=== PATIENT | female | born 1975 | race African-American/Black ===

== ENCOUNTER 2019-08-14 23:07 | Inpatient (IN) | payer OTHER ==
[~2019-08-14] VITALS: Ht 160 cm; Wt 59.0 kg
[2019-08-14] MEDS ORDERED: PERCOCET 5-3251 EACH ORAL (23:27)
[2019-08-14] MEDS ORDERED: TRAMADOL HCL50 MG ORAL (23:27)
[2019-08-14] MEDS ORDERED: AUGMENTIN 875-1 EAC1 ORAL (23:27)
--- NOTE | 2019-08-14 23:28 | Emergency Room Report ---
History of Present Illness General Chief Complaint: Abdominal Pain Source: Patient Present Illness HPI Patient presents with complaints of diffuse body pain and diffuse abdominal pain She had uterine fibroids embolectomy this morning and as the pain has now persisted and worsened throughout the day she was concerned and came to the ER denies any fever she does feel nauseous Denies any chest pain or shortness of breath denies any diarrhea Denies any dysuria or frequency pain is also increased in the Bilateral suprapubic region Complains of cramping sensation Allergies: Coded Allergies: No Known Allergies (Unverified , 08/14/19) Patient History Past Medical History: see triage record Reviewed Nursing Documentation: PMH: Agreed; PSxH: Agreed Review of Systems All Other Systems: negative except mentioned in HPI Physical Exam 99% on room air which is normal Sp02 EP Interpretation: reviewed, normal General Appearance: other - Appears uncomfortable Head: normocephalic, atraumatic Eyes: bilateral eye PERRL, bilateral eye EOMI ENT: hearing grossly normal, EOM grossly intact Neck: supple Respiratory: lungs clear, no respiratory distress, no retraction, no accessory muscle use Cardiovascular #1: regular rate, rhythm Gastrointestinal: other - Uncomfortable on palpation diffusely some decreased bowel sounds are noted Genitourinary: no CVA tenderness Musculoskeletal: normal inspection Neurologic: alert, oriented x3 Psychiatric: normal inspection Skin: no rash Lymphatic: no adenopathy Medical Decision Making Diagnostic Impression: Primary Impression: Postoperative abdominal pain Additional Impression: Intractable abdominal pain ER Course With the patient's history and examination, multiple differentials considered, including but not limited to , ectopic , ovarian torsion, gastritis, cholecystitis, pancreatitis, appendicitis Given the patient's recent embolectomy consideration for secondary pathology such as internal bleeding, bowel obstruction also entertained CT imaging does not show obvious evidence of obstruction There are multiple findings which will be reviewed Patient's blood work is at baseline levels she is doing better with pain control and admitted for further review and care Labs Test 08/15/19 00:20 White Blood Count 9.8 K/UL (4.8-10.8) Red Blood Count 4.24 M/UL (4.20-5.40) Hemoglobin 10.4 G/DL (12.0-16.0) Hematocrit 30.9 % (37.0-47.0) Mean Corpuscular Volume 73 FL (80-99) Mean Corpuscular Hemoglobin 24.5 PG (27.0-31.0) Mean Corpuscular Hemoglobin Concent 33.6 G/DL (32.0-36.0) Red Cell Distribution Width 20.8 % (11.6-14.8) Platelet Count 356 K/UL (150-450) Mean Platelet Volume 7.0 FL (6.5-10.1) Neutrophils (%) (Auto) 82.4 % (45.0-75.0) Lymphocytes (%) (Auto) 16.6 % (20.0-45.0) Monocytes (%) (Auto) 0.8 % (1.0-10.0) Eosinophils (%) (Auto) 0.0 % (0.0-3.0) Basophils (%) (Auto) 0.3 % (0.0-2.0) Urine Color Pale yellow Urine Appearance Clear Urine pH 8 (4.5-8.0) Urine Specific [place] 1.010 (1.005-1.035) Urine Protein Negative (NEGATIVE) Urine Glucose (UA) Negative (NEGATIVE) Urine Ketones Negative (NEGATIVE) Urine Blood 1+ (NEGATIVE) Urine Nitrite Negative (NEGATIVE) Urine Bilirubin Negative (NEGATIVE) Urine Urobilinogen Normal MG/DL (0.0-1.0) Urine Leukocyte Esterase Negative (NEGATIVE) Urine RBC 0-2 /HPF (0 - 2) Urine WBC 0 /HPF (0 - 2) Urine Squamous Epithelial Cells Few /LPF (NONE/OCC) Urine Bacteria None /HPF (NONE) Urine HCG, Qualitative Negative (NEGATIVE) Sodium Level 132 MMOL/L (136-145) Potassium Level 3.7 MMOL/L (3.5-5.1) Chloride Level 98 MMOL/L (98-107) Carbon Dioxide Level 27 MMOL/L (21-32) Anion Gap 7 mmol/L (5-15) Blood Urea Nitrogen 9 mg/dL (7-18) Creatinine 1.0 MG/DL (0.55-1.30) Estimat Glomerular Filtration Rate > 60 mL/min (>60) Glucose Level 138 MG/DL (74-106) Calcium Level 8.5 MG/DL (8.5-10.1) Total Bilirubin 0.2 MG/DL (0.2-1.0) Aspartate Amino Transf (AST/SGOT) 24 U/L (15-37) Alanine Aminotransferase (ALT/SGPT) 33 U/L (12-78) Alkaline Phosphatase 60 U/L (46-116) Total Protein 8.3 G/DL (6.4-8.2) Albumin 3.4 G/DL (3.4-5.0) Globulin 4.9 g/dL Albumin/Globulin Ratio 0.7 (1.0-2.7) Lipase 70 U/L (73-393) CT/MRI/US Diagnostic Results CT/MRI/US Diagnostic Results : Impression CT abdomen pelvisIMPRESSION: 1. Patient has contrast from a prior injection seen within the gallbladder, ureters, bladder, and the uterus. 2. Severely distended stomach filled with fluid, nonspecific. No bowel obstruction or bowel thickening. Copious amounts of stool throughout the colon with mild stool impaction in the distal colon and rectum. 3. Severely enlarged uterus with multiple enhancing lesions, presumed to be fibroids. Consider outpatient MRI of the pelvis for better characterization given the large size of the uterus (12 cm) and number of fibroids (more than 10). Status: improved Disposition: ADMITTED INPATIENT Condition: German DeniselvislitDakota DO August 14, 2019 23:28
[2019-08-14] MEDS ORDERED: Morphine Sulfate 4mg/ml Inj (IV USE ONLY) IVP ONE (23:30)
[2019-08-14] MEDS ORDERED: DiphenhydrAMINE 50mg/ml Inj IVP ONE (23:30)
[2019-08-14 23:32] VITALS: BP 127/77
--- NOTE | 2019-08-14 23:32 | NUR ---
ED Nurse Note: Pt brought into ED via wheelchair CO 10/10 abdominal pain that radiates to legs. Pt states that she previously had surgery earlier this afternoon. Pt states that she has taken percocet 5mg at 1800 and 2100 and pain is unrelieved. VSS no ss of distress noted. Pt denies SOB. Pt aao x 4. Awaiting ERMD at bedside
--- NOTE | 2019-08-14 23:39 | NUR ---
ED Nurse Note: PT REFUSED BLOOD WORK
--- NOTE | 2019-08-14 23:45 | NUR ---
ED Nurse Note: ERMD at bedside
--- NOTE | 2019-08-15 | NUR ---
ED Nurse Note: ERMD at bedside; pt consented to blood work.
--- NOTE | 2019-08-15 00:09 | NUR ---
ED Nurse Note: All medications administered, pt tolerated well no ss of distress noted.
--- NOTE | 2019-08-15 00:10 | NUR ---
ED Nurse Note: Blood work and UA sent to lab
--- NOTE | 2019-08-15 00:12 | NUR ---
ED Nurse Note: PT TAKEN TO CT IN STABLE CONDITION, VSS NO SS OF DISTRESS NOTED
[2019-08-15] MEDS ORDERED: Potassium Chloride 20 MEQ in Dextrose 5%/Lactated Ringer's 1,000 ML IV SCH (00:15)
[2019-08-15 00:25] LABS: APPEARANCE,URINE CLEAR; BASOPHILS % (AUTO) 0.3 % (0.0-2.0); BILIRUBIN, URINE NEGATIVE (NEGATIVE); COLOR,URINE PALE YELLOW; GLUCOSE, URINE (UA) NEGATIVE (NEGATIVE); HEMATOCRIT 30.9 % (37.0-47.0); HEMOGLOBIN 10.4 G/DL (12.0-16.0); KETONES,URINE NEGATIVE (NEGATIVE); LEUKOCYTE ESTERASE ,URINE NEGATIVE (NEGATIVE); LYMPHOCYTES % (AUTO) 16.6 % (20.0-45.0); MEAN CORPUSCULAR VOLUME 73 FL (80-99); MONOCYTES % (AUTO) 0.8 % (1.0-10.0); NEUTROPHILS % (AUTO) 82.4 % (45.0-75.0); NITRITE,URINE NEGATIVE (NEGATIVE); PH,URINE 8 (4.5-8.0); PLATELET COUNT 356 K/UL (150-450); PROTEIN,URINE NEGATIVE (NEGATIVE); RED BLOOD COUNT 4.24 M/UL (4.20-5.40); RED CELL DISTRIBUTION WIDTH 20.8 % (11.6-14.8); UROBILINOGEN,URINE NORMAL MG/DL (0.0-1.0); WHITE BLOOD COUNT 9.8 K/UL (4.8-10.8)
[2019-08-15 00:35] LABS: ANION GAP 7 mmol/L (5-15); BLOOD UREA NITROGEN 9 mg/dL (7-18); CALCIUM 8.5 MG/DL (8.5-10.1); CARBON DIOXIDE 27 MMOL/L (21-32); CHLORIDE 98 MMOL/L (98-107); POTASSIUM 3.7 MMOL/L (3.5-5.1); SODIUM 132 MMOL/L (136-145)
[2019-08-15 00:39] LABS: ALANINE AMINOTRANSFERASE 33 U/L (12-78); ALBUMIN 3.4 G/DL (3.4-5.0); ALBUMIN/GLOBULIN RATIO 0.7 (1.0-2.7); ALKALINE PHOSPHATASE 60 U/L (46-116); ASPARTATE AMINO TRANSFERASE 24 U/L (15-37); BILIRUBIN,TOTAL 0.2 MG/DL (0.2-1.0)
[2019-08-15] MEDS ORDERED: Morphine Sulfate 4mg/ml Inj (IV USE ONLY) IVP ONE (01:00)
--- NOTE | 2019-08-15 01:07 | NUR ---
ED Nurse Note: Report given to LIONEL Wills on MS unit.
[2019-08-15 01:12] VITALS: BP 118/73
--- NOTE | 2019-08-15 01:13 | Diagnostic Imaging Report ---
EXAM: CT Abdomen and Pelvis Without Intravenous Contrast CLINICAL HISTORY: ABD PAIN TECHNIQUE: Axial computed tomography images of the abdomen and pelvis without intravenous contrast. CTDI is 4 mGy and DLP is 218 mGy-cm. One or more of the following dose reduction techniques were used: automated exposure control, adjustment of the mA and/or kV according to patient size, use of iterative reconstruction technique. COMPARISON: No relevant prior studies available. FINDINGS: Lung bases: No mass. No consolidation. ABDOMEN: Liver: Unremarkable. Gallbladder and bile ducts: Filled with contrast. Pancreas: No ductal dilation. Spleen: Unremarkable. Adrenals: Unremarkable. Kidneys and ureters: No obstructing stones. No hydronephrosis. Stomach and bowel: No bowel obstruction. No bowel wall thickening. Severely distended stomach with fluid, nonspecific. Copious amounts of stool throughout the colon with mild stool impaction in the distal colon and rectum. PELVIS: Appendix: No evidence of appendicitis. Bladder: No stones. Mildly thickened underdistended bladder. Reproductive: Severely enlarged multinodular uterus. ABDOMEN and PELVIS: Intraperitoneal space: Unremarkable. Bones/joints: No acute fractures. Soft tissues: Unremarkable. Vasculature: No abdominal aortic aneurysm. Lymph nodes: No enlarged lymph nodes. IMPRESSION: 1. Patient has contrast from a prior injection seen within the gallbladder, ureters, bladder, and the uterus. 2. Severely distended stomach filled with fluid, nonspecific. No bowel obstruction or bowel thickening. Copious amounts of stool throughout the colon with mild stool impaction in the distal colon and rectum. 3. Severely enlarged uterus with multiple enhancing lesions, presumed to be fibroids. Consider outpatient MRI of the pelvis for better characterization given the large size of the uterus (12 cm) and number of fibroids (more than 10).
--- NOTE | 2019-08-15 03:00 | NUR ---
NURSE NOTES: Patient in bed, awake, alert and verbally responsive. Able to make needs known. Respiration is even and unlabored. Complained of abdominal pain 7/10, was given PRn pain medication in the emergency room prior. Iv site noted. Will start Iv antibiotic, Iv fluid is unavailable at the moment. Charge nurse made aware. Patients belongings at bedside. Bed in low and locked position. Provided safe environment. Call light is at bedside. Will continue plan of care.
[2019-08-15] MEDS: ceFAZolin sod 1 GM in D5W 55 ML IVPB SCH ×3 (03:02→18:19)
[2019-08-15 04:00] VITALS: BP 104/66
[2019-08-15] MEDS: Potassium Chloride 20 MEQ in Dextrose 5%/Lactated Ringer's 1,000 ML IV SCH ×3 (07:00→21:13)
--- NOTE | 2019-08-15 07:15 | NUR ---
NURSE NOTES: Received patient in bed. Awake, A/O x4. On room air. Patient denies pain at this time. IV in the Left AC, site intact. Call light within reach.
--- NOTE | 2019-08-15 07:25 | NUR ---
HAND-OFF: Report given to LIONEL Mendoza.
--- NOTE | 2019-08-15 07:30 | NUR ---
NURSES NOTE: Pt in bed, A/OX4, denies pain currently. Pt states she would like to ambulate the hallways and ambulation is encouraged. Gait is strong. Dressing, R lower groin, dry and intact. IV L AC intact, infusing IVF without incident. All due meds will be given. Bed at lowest level, call light within reach. Patient will continue to be monitored.
[2019-08-15 07:34] LABS: BASOPHILS % (AUTO) 0.6 % (0.0-2.0); HEMATOCRIT 30.8 % (37.0-47.0); HEMOGLOBIN 9.8 G/DL (12.0-16.0); LYMPHOCYTES % (AUTO) 18.8 % (20.0-45.0); MEAN CORPUSCULAR VOLUME 74 FL (80-99); MONOCYTES % (AUTO) 2.3 % (1.0-10.0); NEUTROPHILS % (AUTO) 78.3 % (45.0-75.0); PLATELET COUNT 331 K/UL (150-450); RED BLOOD COUNT 4.15 M/UL (4.20-5.40); RED CELL DISTRIBUTION WIDTH 21.8 % (11.6-14.8); WHITE BLOOD COUNT 7.1 K/UL (4.8-10.8)
[2019-08-15 07:35] LABS: ALANINE AMINOTRANSFERASE 29 U/L (12-78); ALBUMIN/GLOBULIN RATIO 0.7 (1.0-2.7); ALKALINE PHOSPHATASE 51 U/L (46-116); ANION GAP 10 mmol/L (5-15); ASPARTATE AMINO TRANSFERASE 23 U/L (15-37); BILIRUBIN,TOTAL 0.3 MG/DL (0.2-1.0); BLOOD UREA NITROGEN 9 mg/dL (7-18); CALCIUM 8.2 MG/DL (8.5-10.1); CARBON DIOXIDE 24 MMOL/L (21-32); CHLORIDE 102 MMOL/L (98-107); CREATININE 0.9 MG/DL (0.55-1.30); POTASSIUM 4.2 MMOL/L (3.5-5.1); SODIUM 136 MMOL/L (136-145)
[2019-08-15 08:00] VITALS: BP 102/60
--- NOTE | 2019-08-15 09:00 | NUR ---
NURSE NOTES: Patient refused benadryl PO 50 mg. Patient states she does not want to take a lot of medications and states she does not seem it is necessary. Patient re-educated on use, risks, and benefits. No swelling on face noted, patient states she can breath without SOB and can swallow liquids fine.
[2019-08-15] MEDS ORDERED: Docusate 100mg cap ORAL SCH (10:15)
--- NOTE | 2019-08-15 10:15 | History and Physical ---
Latonia Jordan TUNNEL ELASTIC OPERATOR ZIGZAG 08/15/19 1015: History of Present Illness General Date patient seen: August 15, 2019 Time patient seen: 09:00 Reason for Hospitalization: Abdominal Pain Present Illness HPI 43 years old female with no significant past medical history , except uterine fibroids , undergone uterine artery embolization on 08/13. She presented with intermittent diffuse abdominal pain. Pain rated as 6-7 out of 10 in severity, nonradiating. She felt nauseous. She denied fever and chills. She denied dysuria or flank pain. She denied vaginal bleeding or spotting. No BM yet. Upon evaluation patient was afebrile. Laboratory work-up revealed no leukocytosis , hemoglobin 10.4, hematocrit 30.9 ,platelet count 356. Chemistry showed sodium 132, stable other electrolytes, glucose 138. Stable LFT . Urinalysis revealed no evidence of UTI. Urine test was negative. CT scan of the abdomen and pelvis revealed -severely distended stomach filled with fluid, nonspecific. No bowel obstruction or bowel thickening. Copious amounts of stool throughout the colon with mild stool impaction in the distal colon and rectum. -severely enlarged uterus with multiple enhancing lesions, presumed to be fibroids. In emergency department patient started on the IV fluids, received analgesic and antiemetic and admitted for further management. Allergies: Coded Allergies: No Known Allergies (Unverified , 08/14/19) COVID-19 Screening Contact w/high risk pt: No Recent Travel to affected area: No Experienced COVID-19 symptoms?: No Medication History Scheduled Amoxicillin/Potassium Clav 875-125* (Augmentin 875-125 Tablet*), 1 TAB ORAL TWICE A DAY, (Reported) Scheduled PRN Oxycodone/Acetaminophen 5-325* (Percocet 5-325 Mg Tablet*), 1 TAB ORAL Q4H PRN for For Pain, (Reported) Tramadol Hcl* (Ultram*), 50 MG ORAL Q6H PRN for For Pain, (Reported) Patient History Healthcare decision maker Resuscitation status Full Code Advanced Directive on File Past Medical/Surgical History Past Medical/Surgical History: (1) Status post embolization of uterine artery (2) Uterine fibroid Review of Systems Constitutional: Reports: no symptoms Eye: Reports: no symptoms ENT: Reports: no symptoms Respiratory: Reports: no symptoms Cardiovascular: Reports: no symptoms Gastrointestinal: Reports: abdominal pain Genitourinary: Reports: see HPI Musculoskeletal: Reports: no symptoms Skin: Reports: no symptoms Psychiatric: Reports: no symptoms Neurological: Reports: no symptoms Endocrine: Reports: no symptoms Hematologic/Lymphatic: Reports: no symptoms Physical Exam General Appearance: no apparent distress, other - middle age AA female in NAD Lines, tubes and drains: peripheral HEENT: normocephalic, mucous membranes moist, PERRL Neck: non-tender, supple Respiratory/Chest: chest wall non-tender, lungs clear, no respiratory distress , no accessory muscle use Cardiovascular/Chest: normal peripheral pulses, normal rate Abdomen: normal bowel sounds, soft - TTP lower abdomen, no guarding, no rebound , no mass, other - site of procedure RLQ with BandAid C/D/I Extremities: normal range of motion, no calf tenderness, normal capillary refill Skin Exam: warm/dry Neurologic: no motor/sensory deficits, alert, oriented x 3, responsive Musculoskeletal: normal muscle bulk Last 24 Hour Vital Signs Date Time Temp Pulse Resp B/P (MAP) Pulse Ox O2 Delivery O2 Flow Rate FiO2 08/15/19 04:00 97.6 80 16 104/66 (79) 98 08/15/19 01:43 Room Air 08/15/19 01:18 99.1 73 14 118/73 100 Room Air 08/15/19 01:12 99.1 73 14 118/73 100 Room Air 08/15/19 00:06 99.1 08/14/19 23:32 99.1 91 13 127/77 100 Room Air 08/14/19 23:32 91 13 Room Air 08/14/19 23:22 99.1 91 13 127/77 (94) 100 Room Air Intake and Output 08/14/19 08/15/19 19:00 07:00 Intake Total 1250 ml Balance 1250 ml Intake Oral 250 ml IV Total 1000 ml # Voids 1 Laboratory Tests Test 08/15/19 00:20 08/15/19 05:20 White Blood Count 9.8 K/UL (4.8-10.8) 7.1 K/UL (4.8-10.8) Red Blood Count 4.24 M/UL (4.20-5.40) 4.15 M/UL (4.20-5.40) L Hemoglobin 10.4 G/DL (12.0-16.0) L 9.8 G/DL (12.0-16.0) L Hematocrit 30.9 % (37.0-47.0) L 30.8 % (37.0-47.0) L Mean Corpuscular Volume 73 FL (80-99) L 74 FL (80-99) L Mean Corpuscular Hemoglobin 24.5 PG (27.0-31.0) L 23.7 PG (27.0-31.0) L Mean Corpuscular Hemoglobin Concent 33.6 G/DL (32.0-36.0) 31.9 G/DL (32.0-36.0) L Red Cell Distribution Width 20.8 % (11.6-14.8) H 21.8 % (11.6-14.8) H Platelet Count 356 K/UL (150-450) 331 K/UL (150-450) Mean Platelet Volume 7.0 FL (6.5-10.1) 7.0 FL (6.5-10.1) Neutrophils (%) (Auto) 82.4 % (45.0-75.0) H 78.3 % (45.0-75.0) H Lymphocytes (%) (Auto) 16.6 % (20.0-45.0) L 18.8 % (20.0-45.0) L Monocytes (%) (Auto) 0.8 % (1.0-10.0) L 2.3 % (1.0-10.0) Eosinophils (%) (Auto) 0.0 % (0.0-3.0) 0.0 % (0.0-3.0) Basophils (%) (Auto) 0.3 % (0.0-2.0) 0.6 % (0.0-2.0) Urine Color Pale yellow Urine Appearance Clear Urine pH 8 (4.5-8.0) Urine Specific [place] 1.010 (1.005-1.035) Urine Protein Negative (NEGATIVE) Urine Glucose (UA) Negative (NEGATIVE) Urine Ketones Negative (NEGATIVE) Urine Blood 1+ (NEGATIVE) H Urine Nitrite Negative (NEGATIVE) Urine Bilirubin Negative (NEGATIVE) Urine Urobilinogen Normal MG/DL (0.0-1.0) Urine Leukocyte Esterase Negative (NEGATIVE) Urine RBC 0-2 /HPF (0 - 2) Urine WBC 0 /HPF (0 - 2) Urine Squamous Epithelial Cells Few /LPF (NONE/OCC) Urine Bacteria None /HPF (NONE) Urine HCG, Qualitative Negative (NEGATIVE) Sodium Level 132 MMOL/L (136-145) L 136 MMOL/L (136-145) Potassium Level 3.7 MMOL/L (3.5-5.1) 4.2 MMOL/L (3.5-5.1) Chloride Level 98 MMOL/L (98-107) 102 MMOL/L (98-107) Carbon Dioxide Level 27 MMOL/L (21-32) 24 MMOL/L (21-32) Anion Gap 7 mmol/L (5-15) 10 mmol/L (5-15) Blood Urea Nitrogen 9 mg/dL (7-18) 9 mg/dL (7-18) Creatinine 1.0 MG/DL (0.55-1.30) 0.9 MG/DL (0.55-1.30) Estimat Glomerular Filtration Rate > 60 mL/min (>60) > 60 mL/min (>60) Glucose Level 138 MG/DL (74-106) H 146 MG/DL (74-106) H Calcium Level 8.5 MG/DL (8.5-10.1) 8.2 MG/DL (8.5-10.1) L Total Bilirubin 0.2 MG/DL (0.2-1.0) 0.3 MG/DL (0.2-1.0) Aspartate Amino Transf (AST/SGOT) 24 U/L (15-37) 23 U/L (15-37) Alanine Aminotransferase (ALT/SGPT) 33 U/L (12-78) 29 U/L (12-78) Alkaline Phosphatase 60 U/L (46-116) 51 U/L (46-116) Total Protein 8.3 G/DL (6.4-8.2) H 7.5 G/DL (6.4-8.2) Albumin 3.4 G/DL (3.4-5.0) 3.0 G/DL (3.4-5.0) L Globulin 4.9 g/dL 4.5 g/dL Albumin/Globulin Ratio 0.7 (1.0-2.7) L 0.7 (1.0-2.7) L Lipase 70 U/L (73-393) L Height (Feet): 5 Height (Inches): 3.00 Weight (Pounds): 130 Medications Current Medications Medications (Trade) Dose Ordered Sig/Aidan Route PRN Reason Start Time Stop Time Status Last Admin Dose Admin Cefazolin Sodium 1 gm/Dextrose 55 ml @ 110 mls/hr Q8H IVPB 08/15/19 03:00 08/22/19 02:59 08/15/19 03:02 Diphenhydramine HCl (Benadryl) 50 mg TID ORAL 08/15/19 09:00 09/14/19 08:59 Hydromorphone HCl (Dilaudid) 1 mg Q3H PRN IVP For Pain 08/15/19 01:30 08/22/19 01:29 Hydromorphone HCl (Dilaudid) 2 mg Q2H PRN IVP severe pain 08/15/19 01:30 08/22/19 01:29 Hydromorphone HCl (Dilaudid) 2 mg Q3H PRN IVP Moderate Pain (Pain Scale 4-6) 08/15/19 01:30 08/22/19 01:29 08/15/19 06:48 Iron Sucrose 100 mg/Sodium Chloride 60 ml @ 240 mls/hr QHS IV 08/15/19 21:00 09/14/19 20:59 Ondansetron HCl (Zofran) 4 mg Q6H PRN IVP Nausea & Vomiting 08/15/19 01:30 09/14/19 01:29 Potassium Chloride 20 meq/ Dextrose/Lactated Ringer's 1,010 ml @ 100 mls/hr Q10H6M IV 08/15/19 01:30 09/14/19 01:29 08/15/19 09:12 Assessment/Plan Status Narrative ASSESSMENT Post-procedure abdominal pain Multiple uterine fibroids s/p uterine artery embolization 08/13 Anemia Constipation Hyponatremia - resolved PLAN OF CARE MS floor pain management a/emetic prn bowel regimen, start stool oftener, CL diet and advance as tolerated IVF, decrease rate when advance diet and dc later monitor HH with goal to keep Hgb >7; , on IV iron as per surgeon remains afebrile, no leukocytosis, continue empiric abx for now hypo Na resolved after 1 L of NS at ER supportive care case discussed and evaluated by supervising physician Leon Engel MD 08/15/19 2200: History of Present Illness General Reason for Hospitalization: Abdominal Pain Present Illness Allergies: Coded Allergies: No Known Allergies (Unverified , 08/14/19) Medication History Scheduled Amoxicillin/Potassium Clav 875-125* (Augmentin 875-125 Tablet*), 1 TAB ORAL TWICE A DAY, (Reported) Scheduled PRN Oxycodone/Acetaminophen 5-325* (Percocet 5-325 Mg Tablet*), 1 TAB ORAL Q4H PRN for For Pain, (Reported) Tramadol Hcl* (Ultram*), 50 MG ORAL Q6H PRN for For Pain, (Reported) Assessment/Plan Assessment/Plan: Patient seen and examined with TUNNEL ELASTIC OPERATOR ZIGZAG and I agree with the above assessment and plan. -Pain control -IVF -IV iron -bowel regimen -encouraged ambulation Latonia Jordan NP August 15, 2019 10:15 Leon Engel MD August 15, 2019 22:00
--- NOTE | 2019-08-15 10:20 | General Surgery Progress Note ---
General Surgery-Progress Note Subjective Day of Surgery: august 13 Procedure Performed uterine fibroid embolization Symptoms: improved, tolerating diet, voiding well, passing flatus, pain decreased Objective Last 24 Hour Vital Signs Date Time Temp Pulse Resp B/P (MAP) Pulse Ox O2 Delivery O2 Flow Rate FiO2 08/15/19 09:00 Room Air 08/15/19 04:00 97.6 80 16 104/66 (79) 98 08/15/19 01:43 Room Air 08/15/19 01:18 99.1 73 14 118/73 100 Room Air 08/15/19 01:12 99.1 73 14 118/73 100 Room Air 08/15/19 00:06 99.1 08/14/19 23:32 99.1 91 13 127/77 100 Room Air 08/14/19 23:32 91 13 Room Air 08/14/19 23:22 99.1 91 13 127/77 (94) 100 Room Air I&O Intake and Output 08/14/19 08/15/19 19:00 07:00 Intake Total 1250 ml Balance 1250 ml Intake Oral 250 ml IV Total 1000 ml # Voids 1 Dressing: dry Wound: clean Drains: none Cardiovascular: RSR Respiratory: clear Abdomen: soft, flat, tenderness, present bowel sounds Extremities: no edema, no tenderness, no cyanosis Laboratory Tests Test 08/15/19 00:20 08/15/19 05:20 White Blood Count 9.8 K/UL (4.8-10.8) 7.1 K/UL (4.8-10.8) Red Blood Count 4.24 M/UL (4.20-5.40) 4.15 M/UL (4.20-5.40) L Hemoglobin 10.4 G/DL (12.0-16.0) L 9.8 G/DL (12.0-16.0) L Hematocrit 30.9 % (37.0-47.0) L 30.8 % (37.0-47.0) L Mean Corpuscular Volume 73 FL (80-99) L 74 FL (80-99) L Mean Corpuscular Hemoglobin 24.5 PG (27.0-31.0) L 23.7 PG (27.0-31.0) L Mean Corpuscular Hemoglobin Concent 33.6 G/DL (32.0-36.0) 31.9 G/DL (32.0-36.0) L Red Cell Distribution Width 20.8 % (11.6-14.8) H 21.8 % (11.6-14.8) H Platelet Count 356 K/UL (150-450) 331 K/UL (150-450) Mean Platelet Volume 7.0 FL (6.5-10.1) 7.0 FL (6.5-10.1) Neutrophils (%) (Auto) 82.4 % (45.0-75.0) H 78.3 % (45.0-75.0) H Lymphocytes (%) (Auto) 16.6 % (20.0-45.0) L 18.8 % (20.0-45.0) L Monocytes (%) (Auto) 0.8 % (1.0-10.0) L 2.3 % (1.0-10.0) Eosinophils (%) (Auto) 0.0 % (0.0-3.0) 0.0 % (0.0-3.0) Basophils (%) (Auto) 0.3 % (0.0-2.0) 0.6 % (0.0-2.0) Urine Color Pale yellow Urine Appearance Clear Urine pH 8 (4.5-8.0) Urine Specific [place] 1.010 (1.005-1.035) Urine Protein Negative (NEGATIVE) Urine Glucose (UA) Negative (NEGATIVE) Urine Ketones Negative (NEGATIVE) Urine Blood 1+ (NEGATIVE) H Urine Nitrite Negative (NEGATIVE) Urine Bilirubin Negative (NEGATIVE) Urine Urobilinogen Normal MG/DL (0.0-1.0) Urine Leukocyte Esterase Negative (NEGATIVE) Urine RBC 0-2 /HPF (0 - 2) Urine WBC 0 /HPF (0 - 2) Urine Squamous Epithelial Cells Few /LPF (NONE/OCC) Urine Bacteria None /HPF (NONE) Urine HCG, Qualitative Negative (NEGATIVE) Sodium Level 132 MMOL/L (136-145) L 136 MMOL/L (136-145) Potassium Level 3.7 MMOL/L (3.5-5.1) 4.2 MMOL/L (3.5-5.1) Chloride Level 98 MMOL/L (98-107) 102 MMOL/L (98-107) Carbon Dioxide Level 27 MMOL/L (21-32) 24 MMOL/L (21-32) Anion Gap 7 mmol/L (5-15) 10 mmol/L (5-15) Blood Urea Nitrogen 9 mg/dL (7-18) 9 mg/dL (7-18) Creatinine 1.0 MG/DL (0.55-1.30) 0.9 MG/DL (0.55-1.30) Estimat Glomerular Filtration Rate > 60 mL/min (>60) > 60 mL/min (>60) Glucose Level 138 MG/DL (74-106) H 146 MG/DL (74-106) H Calcium Level 8.5 MG/DL (8.5-10.1) 8.2 MG/DL (8.5-10.1) L Total Bilirubin 0.2 MG/DL (0.2-1.0) 0.3 MG/DL (0.2-1.0) Aspartate Amino Transf (AST/SGOT) 24 U/L (15-37) 23 U/L (15-37) Alanine Aminotransferase (ALT/SGPT) 33 U/L (12-78) 29 U/L (12-78) Alkaline Phosphatase 60 U/L (46-116) 51 U/L (46-116) Total Protein 8.3 G/DL (6.4-8.2) H 7.5 G/DL (6.4-8.2) Albumin 3.4 G/DL (3.4-5.0) 3.0 G/DL (3.4-5.0) L Globulin 4.9 g/dL 4.5 g/dL Albumin/Globulin Ratio 0.7 (1.0-2.7) L 0.7 (1.0-2.7) L Lipase 70 U/L (73-393) L Additional Comments labs ok, pain control improved today Plan Additional Comments ambulate, IV iron, Tomi Lr MD August 15, 2019 10:20
--- NOTE | 2019-08-15 10:22 | NUR ---
*-* INSURANCE *-* ALL AVAILABLE CLINICALS HAVE BEEN FAXED TO: [employer] FAX CLINICALS TO [phone] Addendum: 08/15/19 at 1144 by SHAYNA ROBERTO CM REF# [id number] [facility]: ELÍAS Mcleod [phone]
[2019-08-15] MEDS: HYDROmorphone 1mg/ml Carpuject IVP PRN ×2 (11:55→21:32)
[2019-08-15 12:00] VITALS: BP 119/68
--- NOTE | 2019-08-15 12:37 | NUR ---
CASE MANAGEMENT:INITIAL REVIEW 43 YR OLD FEMALE FROM HOME ]CC;ABDOMINAL PAIN SI;INTRACTABLE ABD PAIN S/P FIBROID 99.1 91 13 127/77 100% ON RA NA 132 BG 138 UA+ BLOOD ABD/PELVIS CT S/O CONTRAST ~ 1. Patient has contrast from a prior injection seen within the gallbladder, ureters, bladder, and the uterus. 2. Severely distended stomach filled with fluid, nonspecific. No bowel obstruction or bowel thickening. Copious amounts of stool throughout the colon with mild stool impaction in the distal colon and rectum. 3. Severely enlarged uterus with multiple enhancing lesions, presumed to be fibroids. Consider outpatient MRI of the pelvis for better characterization given the large size of the uterus (12 cm) and number of fibroids (more than 10). IS;ZOFRAN IV ONCE MORPHINE IV ONCE IVF NS BOLUS BENADRYL IV ONCE ADMITTED TO MED SURG @ 00:24 ON 08/15/19 MEDS SURG STATUS DCP;FROM HOME
--- NOTE | 2019-08-15 13:00 | NUR ---
NURSE NOTES: Patient refused PO benadryl. Refused x3. Patient re-educated on risks and benefits. Dr. Lr made aware.
[2019-08-15] MEDS: Docusate 100mg cap ORAL SCH ×2 (13:33→18:19)
[2019-08-15 16:00] VITALS: BP 127/73
[2019-08-15] MEDS ORDERED: Milk of Magnesia 30ml Ud ORAL PRN (16:45)
[2019-08-15] MEDS: Miralax 17gm pkt ORAL SCH (16:54)
--- NOTE | 2019-08-15 19:30 | NUR ---
HAND-OFF: Report given to Kailyn FLOWERS.
[2019-08-15 20:00] VITALS: BP 104/69
[2019-08-15] MEDS: Iron Sucrose 100 MG in NS 55 ML IV SCH (21:14)
[2019-08-16] VITALS: BP 102/70
[2019-08-16] MEDS: ceFAZolin sod 1 GM in D5W 55 ML IVPB SCH ×4 (02:46→23:08)
[2019-08-16] MEDS: HYDROmorphone 1mg/ml Carpuject IVP PRN ×3 (02:53→18:43)
[2019-08-16 04:00] VITALS: BP 100/63
[2019-08-16 06:44] LABS: BASOPHILS % (AUTO) 0.5 % (0.0-2.0); HEMATOCRIT 28.9 % (37.0-47.0); HEMOGLOBIN 9.2 G/DL (12.0-16.0); LYMPHOCYTES % (AUTO) 35.1 % (20.0-45.0); MEAN CORPUSCULAR VOLUME 76 FL (80-99); MONOCYTES % (AUTO) 6.2 % (1.0-10.0); NEUTROPHILS % (AUTO) 58.2 % (45.0-75.0); PLATELET COUNT 315 K/UL (150-450); RED BLOOD COUNT 3.82 M/UL (4.20-5.40); RED CELL DISTRIBUTION WIDTH 21.5 % (11.6-14.8); WHITE BLOOD COUNT 14.3 K/UL (4.8-10.8)
[2019-08-16 07:09] LABS: ALANINE AMINOTRANSFERASE 28 U/L (12-78); ALBUMIN 2.8 G/DL (3.4-5.0); ALBUMIN/GLOBULIN RATIO 0.7 (1.0-2.7); ALKALINE PHOSPHATASE 50 U/L (46-116); ANION GAP 5 mmol/L (5-15); ASPARTATE AMINO TRANSFERASE 26 U/L (15-37); BILIRUBIN,TOTAL 0.2 MG/DL (0.2-1.0); BLOOD UREA NITROGEN 6 mg/dL (7-18); CARBON DIOXIDE 28 MMOL/L (21-32); CHLORIDE 104 MMOL/L (98-107); CREATININE 0.9 MG/DL (0.55-1.30); POTASSIUM 4.2 MMOL/L (3.5-5.1); SODIUM 137 MMOL/L (136-145)
--- NOTE | 2019-08-16 07:25 | NUR ---
NURSE NOTES: Report received from Kailyn FLOWERS, rounds made. Patient sleeping in right lateral position in bed. IVF D5LR +20 KCL at 100 ml infusing to LAC, site asymptomatic. Call light in reach, bed in lowest position, will continue to monitor.
--- NOTE | 2019-08-16 07:38 | NUR ---
HAND OFF: Report given to LIONEL Evans.
[2019-08-16] MEDS: Potassium Chloride 20 MEQ in Dextrose 5%/Lactated Ringer's 1,000 ML IV SCH ×2 (07:48→14:25)
[2019-08-16 08:00] VITALS: BP 96/70
--- NOTE | 2019-08-16 09:18 | Pulmonology Progress Note ---
Latonia Jordan RN IV THERAPY 08/16/19 0918: Subjective Allergies: Coded Allergies: No Known Allergies (Unverified , 08/14/19) Subjective afebrile, WBC up to 14.3 no BM yet tolerates CL diet pain controlled Hgb down to 9.2, denies any vaginal bleeding/spotting Objective Last 24 Hour Vital Signs Date Time Temp Pulse Resp B/P (MAP) Pulse Ox O2 Delivery O2 Flow Rate FiO2 08/16/19 04:00 97.6 63 19 100/63 (75) 90 08/16/19 00:00 98.5 57 19 102/70 (81) 90 08/15/19 21:00 Room Air 08/15/19 20:00 98.0 70 19 104/69 (81) 98 08/15/19 16:00 98.0 83 20 127/73 (91) 97 08/15/19 12:00 98.2 71 20 119/68 (85) 98 Intake and Output 08/15/19 08/16/19 19:00 07:00 Intake Total 1380 ml 1480 ml Balance 1380 ml 1480 ml Intake Oral 480 ml 480 ml IV Total 900 ml 1000 ml # Voids 1 Objective General Appearance: no apparent distress, other - middle age AA female in NAD Lines, tubes and drains: peripheral HEENT: normocephalic, mucous membranes moist, PERRL Neck: non-tender, supple Respiratory/Chest: chest wall non-tender, lungs clear, no respiratory distress , no accessory muscle use Cardiovascular/Chest: normal peripheral pulses, normal rate Abdomen: normal bowel sounds, soft - TTP lower abdomen, no guarding, no rebound , no mass, site of procedure RLQ with BandAid C/D/I Extremities: normal range of motion, no calf tenderness, normal capillary refill Skin Exam: warm/dry Neurologic: no motor/sensory deficits, alert, oriented x 3, responsive Musculoskeletal: normal muscle bulk Laboratory Tests 08/16/19 05:05: White Blood Count 14.3#H, Red Blood Count 3.82L, Hemoglobin 9.2L, Hematocrit 28.9L, Mean Corpuscular Volume 76L, Mean Corpuscular Hemoglobin 24.1L, Mean Corpuscular Hemoglobin Concent 31.8L, Red Cell Distribution Width 21.5H, Platelet Count 315, Mean Platelet Volume 6.3L, Neutrophils (%) (Auto) 58.2, Lymphocytes (%) (Auto) 35.1, Monocytes (%) (Auto) 6.2, Eosinophils (%) (Auto) 0.0, Basophils (%) (Auto) 0.5, Sodium Level 137, Potassium Level 4.2, Chloride Level 104, Carbon Dioxide Level 28, Anion Gap 5, Blood Urea Nitrogen 6L, Creatinine 0.9, Estimat Glomerular Filtration Rate > 60, Glucose Level 104, Calcium Level 8.0L, Total Bilirubin 0.2, Aspartate Amino Transf (AST/SGOT) 26, Alanine Aminotransferase (ALT/SGPT) 28, Alkaline Phosphatase 50, Total Protein 6.9, Albumin 2.8L, Globulin 4.1, Albumin/Globulin Ratio 0.7L Current Medications Medications (Trade) Dose Ordered Sig/Aidan Route PRN Reason Start Time Stop Time Status Last Admin Dose Admin Cefazolin Sodium 1 gm/Dextrose 55 ml @ 110 mls/hr Q8H IVPB 08/15/19 03:00 08/22/19 02:59 08/16/19 02:46 Diphenhydramine HCl (Benadryl) 50 mg TID ORAL 08/15/19 09:00 09/14/19 08:59 Docusate Sodium (Colace) 100 mg THREE TIMES A DAY ORAL 08/15/19 13:00 09/14/19 12:59 08/15/19 18:19 Hydromorphone HCl (Dilaudid) 1 mg Q3H PRN IVP For Pain 08/15/19 01:30 08/22/19 01:29 08/16/19 06:25 Hydromorphone HCl (Dilaudid) 2 mg Q2H PRN IVP severe pain 08/15/19 01:30 08/22/19 01:29 08/15/19 16:30 Hydromorphone HCl (Dilaudid) 2 mg Q3H PRN IVP Moderate Pain (Pain Scale 4-6) 08/15/19 01:30 08/22/19 01:29 08/15/19 06:48 Iron Sucrose 100 mg/Sodium Chloride 60 ml @ 240 mls/hr QHS IV 08/15/19 21:00 09/14/19 20:59 08/15/19 21:14 Magnesium Hydroxide (Mom) 30 ml DAILYPRN PRN ORAL Constipation 08/15/19 16:45 09/14/19 16:44 08/16/19 02:53 Ondansetron HCl (Zofran) 4 mg Q6H PRN IVP Nausea & Vomiting 08/15/19 01:30 09/14/19 01:29 Polyethylene Glycol (Miralax) 17 gm DAILY ORAL 08/15/19 16:45 09/14/19 16:44 08/15/19 16:54 Potassium Chloride 20 meq/ Dextrose/Lactated Ringer's 1,010 ml @ 100 mls/hr Q10H6M IV 08/15/19 01:30 09/14/19 01:29 08/15/19 21:13 Assessment/Plan Assessment/Plan ASSESSMENT Post-procedure abdominal pain Multiple uterine fibroids s/p uterine artery embolization 08/13 Anemia Constipation Leukocytosis, probably due to postembolization syndrome Hyponatremia - resolved PLAN OF CARE MS floor pain management a/emetic prn bowel regimen, on stool softener, Miralax and MOM prn no BM yet will give 1 dose of Lactulose CL diet and advance as tolerated IVF, decrease rate when advance diet and dc later monitor HH with goal to keep Hgb >7; , on IV iron as per surgeon remains afebrile, leukocytosis this am discussed with surgeon, no need to change abx, continue with Ancef trend WBC, leukocytosis likely reactive due to recent procedure/ due to postembolization syndrome hypo Na resolved after 1 L of NS at ER supportive care case discussed and evaluated by supervising physician Leon Engel MD 08/16/19 1343: Subjective Allergies: Coded Allergies: No Known Allergies (Unverified , 08/14/19) Assessment/Plan Assessment/Plan Patient seen and examined with RN IV THERAPY. I agree with the above assessment and plan. Monitor leukocytosis and temp elevations, likely due to recent embolization Advance diet as tolerated Bowel regimen Mobilize Latonia Jordan NP August 16, 2019 09:18 Leon Engel MD August 16, 2019 13:43
[2019-08-16] MEDS ORDERED: Lactulose 20gm/30ml UDC ORAL SCH (09:30)
[2019-08-16] MEDS: Docusate 100mg cap ORAL SCH ×3 (09:39→18:00)
[2019-08-16] MEDS: Miralax 17gm pkt ORAL SCH (09:40)
[2019-08-16] MEDS: Acetaminophen 500mg (ES) tab ORAL PRN ×2 (09:44→20:52)
[2019-08-16] MEDS ORDERED: Fleet's Mineral Oil Enema RECTAL SCH (10:15)
--- NOTE | 2019-08-16 11:00 | NUR ---
NURSE NOTES: Spoke to Dr. Lr regarding patient current status (vitals, labs, medications, bowel sounds +, gas +, pain, appetite). Orders received for Fleets Mineral Oil enema and soft diet. Patient updated with new orders. Patient refused Fleets due to BM (Green, Liquid, Large). Patient medicated with Tylenol as per requested due to "doesn't want to take medications her body isn't used to", instructed patient on when she can have Tylenol again and also offered Dilaudid IV in between Tylenol doses to keep pain tolerable, patient verbalized understanding. Encouraged ambulation and hydration.
[2019-08-16 12:00] VITALS: BP 101/79
--- NOTE | 2019-08-16 13:04 | General Surgery Progress Note ---
General Surgery-Progress Note Subjective Procedure Performed uterine fibroid embolization Symptoms: improved, not tolerating diet, passing flatus, BM, pain decreased Objective Last 24 Hour Vital Signs Date Time Temp Pulse Resp B/P (MAP) Pulse Ox O2 Delivery O2 Flow Rate FiO2 08/16/19 04:00 97.6 63 19 100/63 (75) 90 08/16/19 00:00 98.5 57 19 102/70 (81) 90 08/15/19 21:00 Room Air 08/15/19 20:00 98.0 70 19 104/69 (81) 98 08/15/19 16:00 98.0 83 20 127/73 (91) 97 I&O Intake and Output 08/15/19 08/16/19 19:00 07:00 Intake Total 1380 ml 1480 ml Balance 1380 ml 1480 ml Intake Oral 480 ml 480 ml IV Total 900 ml 1000 ml # Voids 1 Dressing: dry Wound: clean Drains: none Cardiovascular: RSR Respiratory: clear Abdomen: soft, flat, scaphoid, tenderness, present bowel sounds Extremities: no edema, no tenderness, no cyanosis Laboratory Tests Test 08/16/19 05:05 White Blood Count 14.3 K/UL (4.8-10.8) #H Red Blood Count 3.82 M/UL (4.20-5.40) L Hemoglobin 9.2 G/DL (12.0-16.0) L Hematocrit 28.9 % (37.0-47.0) L Mean Corpuscular Volume 76 FL (80-99) L Mean Corpuscular Hemoglobin 24.1 PG (27.0-31.0) L Mean Corpuscular Hemoglobin Concent 31.8 G/DL (32.0-36.0) L Red Cell Distribution Width 21.5 % (11.6-14.8) H Platelet Count 315 K/UL (150-450) Mean Platelet Volume 6.3 FL (6.5-10.1) L Neutrophils (%) (Auto) 58.2 % (45.0-75.0) Lymphocytes (%) (Auto) 35.1 % (20.0-45.0) Monocytes (%) (Auto) 6.2 % (1.0-10.0) Eosinophils (%) (Auto) 0.0 % (0.0-3.0) Basophils (%) (Auto) 0.5 % (0.0-2.0) Sodium Level 137 MMOL/L (136-145) Potassium Level 4.2 MMOL/L (3.5-5.1) Chloride Level 104 MMOL/L (98-107) Carbon Dioxide Level 28 MMOL/L (21-32) Anion Gap 5 mmol/L (5-15) Blood Urea Nitrogen 6 mg/dL (7-18) L Creatinine 0.9 MG/DL (0.55-1.30) Estimat Glomerular Filtration Rate > 60 mL/min (>60) Glucose Level 104 MG/DL (74-106) Calcium Level 8.0 MG/DL (8.5-10.1) L Total Bilirubin 0.2 MG/DL (0.2-1.0) Aspartate Amino Transf (AST/SGOT) 26 U/L (15-37) Alanine Aminotransferase (ALT/SGPT) 28 U/L (12-78) Alkaline Phosphatase 50 U/L (46-116) Total Protein 6.9 G/DL (6.4-8.2) Albumin 2.8 G/DL (3.4-5.0) L Globulin 4.1 g/dL Albumin/Globulin Ratio 0.7 (1.0-2.7) L Additional Comments afebrile, rise in wbc likely secondary to post embolization syndrome Plan Additional Comments possible am discharge, discussed c dr ramsey Lr,Tomi Zavaleta MD August 16, 2019 13:04
[2019-08-16] MEDS ORDERED: Piperacillin/Tazobactam 3.375 GM in NS 110 ML IVPB SCH (14:00)
--- NOTE | 2019-08-16 15:45 | NUR ---
NURSE NOTES: Spoke to Dr. Lr regarding patient current status (vitals, pain, BMs, appetite) at 1440. Kpad instructed on and applied to lower abdomen. Offered patient Tylenol, refused at this time. Provided warm liquids (tea, chicken broth), apple and orange slices, per patient request.
[2019-08-16 16:00] VITALS: BP 121/73
--- NOTE | 2019-08-16 17:00 | NUR ---
*-* INSURANCE *-* ALL AVAILABLE CLINICALS HAVE BEEN FAXED TO: [facility] FAX CLINICALS TO [phone] REF# [id number] NINO: ELÍAS Cui; [phone]
--- NOTE | 2019-08-16 19:55 | NUR ---
NURSE NOTES: Spoke with Dr. Lr regarding patient current status (complains of gas pain, abdomen soft/distended, bowel sounds present, gas less, no NV, loss of appetite). Orders for Mylicon, patient updated with new orders, verbalized understanding.
[2019-08-16 20:00] VITALS: BP 119/75
--- NOTE | 2019-08-16 20:15 | NUR ---
HAND-OFF: Report given to Kailyn FLOWERS, rounds made, patient stable.
--- NOTE | 2019-08-16 21:44 | NUR ---
NURSES NOTE: Pt in bed, A/OX4, no outward s/s of distress noted. Breathing is even and unlabored on RA. 2MG Dilaudid iv push administered for 6/10 pain in R lower groin area. IV, L AC patent, infusing IVF without incident. All due meds will be given. Bed at lowest level, call light within reach. Pt will continue to be monitored.
[2019-08-16] MEDS: Iron Sucrose 100 MG in NS 55 ML IV SCH (22:02)
[2019-08-17] VITALS: BP 98/63
[2019-08-17] MEDS: Potassium Chloride 20 MEQ in Dextrose 5%/Lactated Ringer's 1,000 ML IV SCH (02:00)
[2019-08-17] MEDS: Simethicone 80mg tab ORAL PRN ×2 (02:42→08:10)
[2019-08-17] MEDS: Acetaminophen 500mg (ES) tab ORAL PRN ×2 (02:43→11:38)
[2019-08-17 04:00] VITALS: BP 119/79
[2019-08-17 06:02] LABS: EOSINOPHILS % (AUTO) 0.1 % (0.0-3.0); MEAN CORPUSCULAR VOLUME 75 FL (80-99)
[2019-08-17] MEDS: ceFAZolin sod 1 GM in D5W 55 ML IVPB SCH ×2 (06:23→13:28)
[2019-08-17] MEDS: HYDROmorphone 1mg/ml Carpuject IVP PRN (06:23)
[2019-08-17 06:31] LABS: ALANINE AMINOTRANSFERASE 34 U/L (12-78); ALBUMIN/GLOBULIN RATIO 0.7 (1.0-2.7); ALKALINE PHOSPHATASE 64 U/L (46-116); ANION GAP 5 mmol/L (5-15); ASPARTATE AMINO TRANSFERASE 37 U/L (15-37); BILIRUBIN,TOTAL 0.2 MG/DL (0.2-1.0); BLOOD UREA NITROGEN 2 mg/dL (7-18); CALCIUM 8.4 MG/DL (8.5-10.1); CARBON DIOXIDE 29 MMOL/L (21-32); CHLORIDE 101 MMOL/L (98-107); CREATININE 0.8 MG/DL (0.55-1.30); POTASSIUM 3.6 MMOL/L (3.5-5.1); SODIUM 135 MMOL/L (136-145)
[2019-08-17 06:42] LABS: BASOPHILS % (AUTO) 0.7 % (0.0-2.0); HEMATOCRIT 29.8 % (37.0-47.0); HEMOGLOBIN 9.6 G/DL (12.0-16.0); LYMPHOCYTES % (AUTO) 24.4 % (20.0-45.0); MONOCYTES % (AUTO) 8.5 % (1.0-10.0); NEUTROPHILS % (AUTO) 66.3 % (45.0-75.0); PLATELET COUNT 325 K/UL (150-450); RED CELL DISTRIBUTION WIDTH 21.6 % (11.6-14.8); WHITE BLOOD COUNT 12.6 K/UL (4.8-10.8)
--- NOTE | 2019-08-17 07:35 | NUR ---
NURSE NOTES: Report received from Kailyn FLOWERS, rounds made. Patient sitting at bedside. No distress on RA. Respirations even/unlabored. Vitals stable. Patient denies pain, "just a little cramping", denies need for any pain medication for cramps. Heating pad in place. Bre-pad provided. Right groin bandaid CDI. IVF (D5LR +20 KCL at 100 ml/hr) infusing to LAC, site asymptomatic. No BM. Abdomen soft, tender, bowel sounds present, no NV. Call light in reach, bed in lowest position, will continue to monitor.
[2019-08-17 08:00] VITALS: BP 109/69
--- NOTE | 2019-08-17 08:00 | NUR ---
NURSES NOTE: Pt had bleeding this morning at apprx 0645. Bright red blood noted in clot formation, small in size. Pt reported discomfort in the R lower groin that was radiating to mid abdomen NOC shift. PRN given accordingly and told pt info would be endorsed to AM nurse.
--- NOTE | 2019-08-17 08:02 | NUR ---
HAND OFF: Report given to LIONEL Evans.
--- NOTE | 2019-08-17 08:35 | NUR ---
NURSE NOTES: Spoke to Dr. Lr regarding patient current status, vitals, labs, abd pain and c/o left groin/upper thigh numbness, blood clot noted with voiding, no BM). No further orders received.
[2019-08-17] MEDS: Docusate 100mg cap ORAL SCH ×2 (09:00→13:00)
[2019-08-17] MEDS: Miralax 17gm pkt ORAL SCH (09:00)
--- NOTE | 2019-08-17 09:33 | Pulmonology Progress Note ---
Latonia Jordan CASINO RUNNER 08/17/19 0932: Subjective Allergies: Coded Allergies: No Known Allergies (Unverified , 08/14/19) Subjective afebrile, WBC down to 12.6 large few BM yesterday tolerates regular diet ambulates pain controlled HH stable; Hgb 9.6 this am did not like Mylicon that she was given by HS nurse, denied any gas pain Objective Last 24 Hour Vital Signs Date Time Temp Pulse Resp B/P (MAP) Pulse Ox O2 Delivery O2 Flow Rate FiO2 08/17/19 04:00 98.6 79 18 119/79 (92) 94 08/17/19 00:00 98.9 74 18 98/63 (75) 95 08/16/19 21:00 Room Air 08/16/19 20:00 99.5 84 20 119/75 (90) 96 08/16/19 16:00 98.1 80 19 121/73 (89) 99 08/16/19 12:00 98.1 64 20 101/79 (86) 99 08/16/19 11:00 Room Air Intake and Output 08/16/19 08/17/19 19:00 07:00 Intake Total 1700 ml 240 ml Output Total 1400 ml Balance 1700 ml -1160 ml Intake Oral 1200 ml 240 ml IV Total 500 ml Output Urine Total 1400 ml # Voids 4 1 # Bowel Movements 8 3 Objective General Appearance: no apparent distress, other - middle age AA female in NAD Lines, tubes and drains: peripheral HEENT: normocephalic, mucous membranes moist, PERRL Neck: non-tender, supple Respiratory/Chest: chest wall non-tender, lungs clear, no respiratory distress , no accessory muscle use Cardiovascular/Chest: normal peripheral pulses, normal rate Abdomen: normal bowel sounds, soft - TTP lower abdomen, no guarding, no rebound , no mass, site of procedure RLQ with BandAid C/D/I Extremities: normal range of motion, no calf tenderness, normal capillary refill Skin Exam: warm/dry Neurologic: no motor/sensory deficits, alert, oriented x 3, responsive Musculoskeletal: normal muscle bulk Laboratory Tests 08/17/19 05:00: White Blood Count 12.6H, Red Blood Count 4.00L, Hemoglobin 9.6L, Hematocrit 29.8L, Mean Corpuscular Volume 75L, Mean Corpuscular Hemoglobin 24.1L, Mean Corpuscular Hemoglobin Concent 32.3, Red Cell Distribution Width 21.6H, Platelet Count 325, Mean Platelet Volume 7.0, Neutrophils (%) (Auto) 66.3, Lymphocytes (%) (Auto) 24.4, Monocytes (%) (Auto) 8.5, Eosinophils (%) (Auto) 0.1, Basophils (%) (Auto) 0.7, Sodium Level 135L, Potassium Level 3.6, Chloride Level 101, Carbon Dioxide Level 29, Anion Gap 5, Blood Urea Nitrogen 2L, Creatinine 0.8, Estimat Glomerular Filtration Rate > 60, Glucose Level 98, Calcium Level 8.4L, Total Bilirubin 0.2, Aspartate Amino Transf (AST/SGOT) 37, Alanine Aminotransferase (ALT/SGPT) 34, Alkaline Phosphatase 64, Total Protein 7.5, Albumin 3.0L, Globulin 4.5, Albumin/Globulin Ratio 0.7L Current Medications Medications (Trade) Dose Ordered Sig/Aidan Route PRN Reason Start Time Stop Time Status Last Admin Dose Admin Acetaminophen (Tylenol) 1,000 mg Q6H PRN ORAL Mild Pain (Pain Scale 1-3) 08/16/19 09:30 09/15/19 09:29 08/17/19 02:43 Cefazolin Sodium 1 gm/Dextrose 55 ml @ 110 mls/hr Q8HR IVPB 08/16/19 14:00 08/23/19 13:59 08/17/19 06:23 Diphenhydramine HCl (Benadryl) 50 mg TID ORAL 08/15/19 09:00 09/14/19 08:59 Docusate Sodium (Colace) 100 mg THREE TIMES A DAY ORAL 08/15/19 13:00 09/14/19 12:59 08/16/19 09:39 Hydromorphone HCl (Dilaudid) 1 mg Q3H PRN IVP For Pain 08/15/19 01:30 08/22/19 01:29 08/17/19 06:23 Hydromorphone HCl (Dilaudid) 2 mg Q2H PRN IVP severe pain 08/15/19 01:30 08/22/19 01:29 08/15/19 16:30 Hydromorphone HCl (Dilaudid) 2 mg Q3H PRN IVP Moderate Pain (Pain Scale 4-6) 08/15/19 01:30 08/22/19 01:29 08/16/19 21:28 Iron Sucrose 100 mg/Sodium Chloride 60 ml @ 240 mls/hr QHS IV 08/15/19 21:00 09/14/19 20:59 08/16/19 22:02 Magnesium Hydroxide (Mom) 30 ml DAILYPRN PRN ORAL Constipation 08/15/19 16:45 09/14/19 16:44 08/16/19 02:53 Ondansetron HCl (Zofran) 4 mg Q6H PRN IVP Nausea & Vomiting 08/15/19 01:30 09/14/19 01:29 Polyethylene Glycol (Miralax) 17 gm DAILY ORAL 08/15/19 16:45 09/14/19 16:44 08/16/19 09:40 Potassium Chloride 20 meq/ Dextrose/Lactated Ringer's 1,010 ml @ 100 mls/hr Q10H6M IV 08/16/19 14:30 09/15/19 14:29 08/17/19 02:00 Simethicone (Mylicon) 80 mg EVERY 3 HOURS PRN ORAL GAS PAIN 08/16/19 20:15 11/14/19 20:14 08/17/19 08:10 Assessment/Plan Assessment/Plan ASSESSMENT Post-procedure abdominal pain Multiple uterine fibroids s/p uterine artery embolization 08/13 Anemia Constipation-resolved Leukocytosis, probably due to postembolization syndrome Hyponatremia - resolved PLAN OF CARE MS floor pain management a/emetic prn bowel regimen, on stool softener, Miralax and MOM prn s/p 1 dose of Lactulose-> constipation resolved large 2 BM diet was advanced to soft, tolerated diet dc IVG monitor HH with goal to keep Hgb >7; , on IV iron as per surgeon remains afebrile, leukocytosis trending down leukocytosis likely reactive due to recent procedure/ due to postembolization syndrome hypo Na resolved after 1 L of NS at ER supportive care surgeon cleared for dc pt can be dc home: tolerates diet, pain controlled, remains hemodynamically stable, ambulates leukocytosis trending down, no fevers need Augmentin x 5 more days pt reported having medications at home, all filled out at the surgical center after procedure , which confirmed by Dr McLucas case discussed and evaluated by supervising physician Naim,Leon MD 08/17/197: Subjective Allergies: Coded Allergies: No Known Allergies (Unverified , 08/14/19) Assessment/Plan Assessment/Plan Patient seen and discussed with [facility] and I agree with the above assessment and plan Latonia Jordan NP August 17, 2019 09:32 Leon Engel MD August 17, 2019 21:07
--- NOTE | 2019-08-17 10:00 | NUR ---
NURSE NOTES: Spoke to Dr. Lr regarding plan of care, patient would like to be discharged, see orders. Per Dr. Lr patient already has her pre-procedure medications at home.
[2019-08-17 12:00] VITALS: BP 127/73
--- NOTE | 2019-08-17 12:50 | NUR ---
*-* INSURANCE *-* UPDATED CLINICALS HAVE BEEN FAXED TO: [facility] FAX CLINICALS TO [phone] REF# [id number] NINO: ELÍAS Cui; [phone]
[2019-08-17] MEDS ORDERED: ACETAMINOPHEN-1 EAC1 ORAL (13:41)
[2019-08-17] MEDS ORDERED: AMBIEN10 M1 ORAL (13:41)
[2019-08-17 14:55] VITALS: BP 123/78
--- NOTE | 2019-08-17 14:55 | NUR ---
NURSE NOTES: Call received from Dr. Lr, stating that his office nurse spoke to the patient and patient was reporting that she was feeling warm and short of breath. Assessed patient. No SOB or labored breathing noted. Patient was standing, AOx4, calm, preparing her bag for discharge. Vitals obtained T 99.9, P 80 RR 18 BP 123/78 O2 sat 97% on RA. Dr. Lr notified of vitals and patient appearance. Instructed to have patient call him if temperature >100.6, updated patient, verbalized understanding.
--- NOTE | 2019-08-17 15:02 | NUR ---
NURSE NOTES: Discharge instructions and prescription x1 reviewed with patient, verbalized understanding. All belongings, discharge instructions and prescription x1 given to patient. LAC IV discontinued, no active bleeding. Patient sent down to [facility] via , Kymberly GOODRICH, in stable condition. Discharged home (brother picked up patient from [facility]) at 1502.
--- NOTE | 2019-08-19 22:38 | Discharge Summary ---
Discharge Summary Discharge Summary _ DATE OF ADMISSION: 08/14/2019 DATE OF DISCHARGE: 08/17/2019 DISCHARGED BY: Dr. Leon Engel CONSULTANTS: Dr. Tomi Lr BRIEF HOSPITAL COURSE: Patient is a 43-year-old female, with no significant past medical history except for uterine fibroids, underwent uterine artery embolization on 2019. Pain persisted and worsened throughout the day. She presented to ED complaining of intermittent diffuse abdominal pain. Pain was rated at 6-7 out of 10 in severity and nonradiating. Patient felt nauseous. She denied fever or chills. Denied dysuria or flank pain. Denied vaginal bleeding or spotting. Upon evaluation in ED, patient was afebrile. Blood work did not show any leukocytosis. Hemoglobin was 10.4, hematocrit 30.9, platelet count of 256. Chemistry showed sodium of 132, stable electrolytes. LFTs normal. Urinalysis did not show any evidence of UTI. Urine test was negative. CT scan of the abdomen and pelvis revealed severely distended stomach filled with fluid , nonspecific. No bowel obstruction or bowel thickening. Copious amounts of stool throughout the colon with mild stool impaction in the distal colon and rectum. Severely enlarged uterus with multiple enhancing lesions, presumed to be fibroids. She was given IV hydration, analgesics and antiemetics. She was then admitted to MedSurg floor for further management. She was given pain management. She was placed on bowel regimen. She was initially started on clear liquid diet, advance as tolerated. She was started empirically on antibiotics. She was given IV iron. Hyponatremia resolved after 1 L of NS at ED. She was closely followed by crm dynamics developer. There was a decrease in hemoglobin, however no vaginal bleeding or spotting. WBC went up to 14. She was continued on empiric antibiotics. She was able to have large BM. She was tolerating diet. She had better pain control. She was eventually cleared for discharge home. FINAL DIAGNOSES: Postprocedure abdominal pain Multiple uterine fibroids status post recent uterine artery embolization 2019 Anemia Constipation, resolved Leukocytosis, probably due to post embolization syndrome Hyponatremia, resolved DISPOSITION: Patient was discharged home. DISCHARGE MEDICATIONS: Refer to Discharge Medication List. DISCHARGE INSTRUCTIONS: Follow-up with crm dynamics developer in a week. I have been assigned to complete a discharge summary on this account, I was not involved with the patient's management.--PRAFUL Light Jacqueline Robles NP August 19, 2019 22:38
--- NOTE | 2019-08-20 14:30 | NUR ---
*-* INSURANCE *-* DISCHARGE SUMMARY HAS BEEN FAXED TO: [facility] FAX CLINICALS TO [phone] REF# [id number] NCM: ELÍAS Cui; [phone]
== END 2019-08-17 15:06 | disposition home or self-care (01) | DRG 948 ==
LOC: EMR 23:32 → 3E 23:51 → EDBEDREQ 08-15 00:02 → 3E 08-15 12:00
DX: G89.18 Other acute postprocedural pain (principal); E87.1 Hypo-osmolality and hyponatremia; K59.00 Constipation, unspecified; D25.9 Leiomyoma of uterus, unspecified; D64.9 Anemia, unspecified
CPT/HCPCS: 36415; 74176; 80053; 81003; 81025; 83690; 85025; 96361; 96374; 96375; 99285; J2405; J7030